=== PATIENT | female | born 1960 | race Two or more races ===

== ENCOUNTER 2024-07-01 08:29 | Emergency (ER) | payer OTHER ==
[~2024-07-01] VITALS: Ht 170.2 cm; Wt 76.7 kg
[2024-07-01] MEDS ORDERED: TOPROL XL50 M1 (08:38)
[2024-07-01 09:16] LABS: HEMATOCRIT 37.8 % (36.0-45.00); HEMOGLOBIN 13.2 g/dL (12.0-15.00); MEAN CELL VOLUME 91.5 fL (80.00-100.00); MEAN CORPUSCULAR HEMOGLOBIN 31.9 pg (27.00-32.0); MEAN CORPUSCULAR HGB CONC 34.9 g/dl (32.0-36.0); PLATELET COUNT 197 K/uL (150-450); RED BLOOD COUNT 4.13 M/uL (4.00-6.00); RED CELL DISTRIBUTION WIDTH 12.8 % (11.5-14.5)
[2024-07-01 09:46] LABS: PH,URINE 5.5 (5.0-8.0); URINE APPEARANCE Cloudy; URINE BILIRRUBIN Small (NEGATIVE); URINE BLOOD Large; URINE COLOR Dark Yellow; URINE GLUCOSE Negative (NEGATIVE); URINE KETONE Trace (NEGATIVE); URINE LEUKOCYTE Trace; URINE NITRATE Negative; URINE PROTEIN 30 (NEGATIVE)
[2024-07-01 09:50] LABS: URINE BACTERIA 60.4 uL (0.0-1933); URINE EPITHELIAL CELLS 7.2 uL (0.0-38.8); URINE RBC 260.4 uL (0.0-20.8); URINE WBC 4.9 uL (0.0-23.2)
[2024-07-01 09:52] LABS: BILIRUBIN TOTAL 0.76 mg/dL (0.3-1.2); BILIRUBIN,CONJUGATED 0.17 mg/dL (0.0-0.2); BILIRUBIN,UNCONJUGATED 0.59 mg/dL (0.0-0.6); CALCIUM 9.5 mg/dL (8.5-10.1); CREATININE SERUM 0.6 mg/dL (0.55-1.02); GFR 101.3; POTASSIUM 4.57 mEq/L (3.5-5.1)
[2024-07-01 10:00] LABS: URINE CAST 0.76 uL (0.0-1.40); URINE CRYSTALS MANY /HPF
[2024-07-01] MEDS ORDERED: RIVAROXABAN 15 MG TABLET PO STA (12:05)
== END 2024-07-01 12:51 | disposition home or self-care (01) ==
LOC: ER 08:31
PROVIDERS: General Practice
DX: I82.4Y9 Acute embolism and thrombosis of unspecified deep veins of unspecified proximal lower extremity (principal); I48.91 Unspecified atrial fibrillation; I49.8 Other specified cardiac arrhythmias

== ENCOUNTER 2024-07-04 07:18 | Inpatient (IN) | payer OTHER ==
[~2024-07-04] VITALS: Ht 170.2 cm; Wt 75.7 kg
[~2024-07-04 07:18] MED LIST: TOPROL XL50 M1
[2024-07-04] MEDS ORDERED: ELIQUIS5 MG PO (07:24)
--- NOTE | 2024-07-04 07:30 | NUR ---
SE RECIBE PTE FEMENINA ALERTA Y ORIENTADA X3 REFIERE DOLOR ABDOMINAL DESDE HACE VARIOS RODRIGUEZ. PTE INDICA FUE ATENDIDA EL PASADO MIERCOLES POR S/S SIMILARES Y FUE DIAGNOSTICADA CON DIVERTICULITIS. SE SARABJIT S/V Y SE UBICA.
--- NOTE | 2024-07-04 09:09 | NUR ---
PTE ALERTA Y ORIENTADA X3 ES EVALUADA POR LA DRA. COLVIN. SE ORIENTA SOBRE TRATAMIENTO,VERBALIZA ENTENDER. SE CANALIZA, SE SARABJIT MUESTARS DE LAB SABINA ORDEN MEDICA BAJO MEDIDAS ASEPTICAS. SE NOTIFICA CT PENDIENTE.
[2024-07-04 09:24] LABS: HEMATOCRIT 37.9 % (36.0-45.00); HEMOGLOBIN 13.2 g/dL (12.0-15.00); MEAN CELL VOLUME 91.8 fL (80.00-100.00); MEAN CORPUSCULAR HGB CONC 34.9 g/dl (32.0-36.0); PLATELET COUNT 228 K/uL (150-450); RED BLOOD COUNT 4.13 M/uL (4.00-6.00); RED CELL DISTRIBUTION WIDTH 12.4 % (11.5-14.5)
[2024-07-04 09:52] LABS: ALBUMIN 3.6 gm/dL (3.4-5.0); BILIRUBIN TOTAL 1.05 mg/dL (0.3-1.2); CALCIUM 9.5 mg/dL (8.5-10.1); CREATININE SERUM 0.68 mg/dL (0.55-1.02); GFR 87.67; GLOBULINA 4.1 G/DL (2.4-3.5); POTASSIUM 4.17 mEq/L (3.5-5.1); TOTAL PROTEIN 7.7 gm/dL (6.4-8.2)
[2024-07-04 09:55] LABS: D DIMER 1.19 MG/L; PARTIAL THROMBOPLASTIN TIME 33.5 SECONDS (22.0-34.0)
[2024-07-04 09:59] LABS: INR 1.19; PROTHROMBIN TIME 12.8 SECONDS (9.0-11.5)
[2024-07-04 12:40] LABS: URINE APPEARANCE CLEAR; URINE COLOR YELLOW
[2024-07-04 12:41] LABS: URINE BILIRRUBIN SMALL (NEGATIVE); URINE GLUCOSE NEGATIVE (NEGATIVE); URINE KETONE 40 (NEGATIVE)
[2024-07-04 12:42] LABS: PH,URINE 5.5; URINE BLOOD MODERATE; URINE PROTEIN NEGATIVE (NEGATIVE)
[2024-07-04 12:43] LABS: URINE LEUKOCYTE NEGATIVE; URINE NITRATE NEGATIVE; URINE UROBILINOGEN 0.2 E.U./dl
[2024-07-04 12:46] LABS: URINE BACTERIA FEW; URINE EPITHELIAL CELLS 0-4 /HPF; URINE WBC 0-2 /hpf
[2024-07-04 12:47] LABS: URINE MUCUS NEGATIVE
--- NOTE | 2024-07-04 15:25 | NUR ---
SE RECIBE PACIENTE DE TURNO ANTERIOR ALERTA Y ORIENTADO EN JANIS PRECIOUS ESFERAS, UBICADO EN HERSON A NIVEL MAS BAJO Y CON BARANDAS ELEVADAS. SE OBSERVA CON BUEN PATRON RESPIRATORIO Y PIEL TIBIA AL TACTO. CANALIZACION PATENTE,KIA DE EDEMA O ERITEMA. PACIENTE CONSULTADA CON Y .
[2024-07-04] MEDS ORDERED: DEXTROSE 5 % AND 0.9 % NACL 1,000 ML IV SCH (17:45)
[2024-07-04] MEDS ORDERED: PIPERACILLIN/TAZOBACTAM SODIUM 3.375 GM in 0.9 % SODIUM CHLORIDE 100 ML IV SCH (18:00)
[2024-07-04] MEDS ORDERED: ACETAMINOPHEN 500 MG GEL..CAP PO PRN (18:00)
[2024-07-04] MEDS ORDERED: ENALAPRILAT DIHYDRATE 1.25 MG/ML VIAL IV PRN (18:00)
[2024-07-04] MEDS ORDERED: ONDANSETRON HCL 4 MG in DEXTROSE 5 % IN WATER 50 ML IV PRN (18:00)
[2024-07-04] MEDS ORDERED: FAMOTIDINE/PF 20 MG in 0.9 % SODIUM CHLORIDE 8 ML IV PUSH SCH (21:00)
[2024-07-04 22:57] VITALS: BP 123/69; O2SAT 98
[2024-07-05] VITALS: BP 116/61; O2SAT 99
[2024-07-05] MEDS ORDERED: MEPERIDINE HCL/PF 25 MG/ML VIAL IM SCH (01:00)
[2024-07-05 08:17] VITALS: BP 107/67; O2SAT 100
[2024-07-05 08:19] VITALS: BP 141/62; O2SAT 98
[2024-07-05 08:35] LABS: HEMATOCRIT 35.8 % (36.0-45.00); HEMOGLOBIN 12.4 g/dL (12.0-15.00); MEAN CELL VOLUME 91.2 fL (80.00-100.00); MEAN CORPUSCULAR HEMOGLOBIN 31.5 pg (27.00-32.0); MEAN CORPUSCULAR HGB CONC 34.5 g/dl (32.0-36.0); PLATELET COUNT 218 K/uL (150-450); RED BLOOD COUNT 3.93 M/uL (4.00-6.00); RED CELL DISTRIBUTION WIDTH 12.2 % (11.5-14.5)
[2024-07-05 08:40] LABS: ALBUMIN 3.3 gm/dL (3.4-5.0); BILIRUBIN TOTAL 0.87 mg/dL (0.3-1.2); BILIRUBIN,CONJUGATED 0.25 mg/dL (0.0-0.2); BILIRUBIN,UNCONJUGATED 0.62 mg/dL (0.0-0.6); CALCIUM 8.4 mg/dL (8.5-10.1); CHOL HDL RATIO 2.4 (0-5.0); CREATININE SERUM 0.49 mg/dL (0.55-1.02); GFR 127.97; GLOBULINA 3.1 G/DL (2.4-3.5); POTASSIUM 3.96 mEq/L (3.5-5.1); TOTAL PROTEIN 6.4 gm/dL (6.4-8.2)
[2024-07-05 08:48] LABS: C-REACTIVE PROTEIN 9.07 MG/DL (0.00-0.29)
[2024-07-05] MEDS ORDERED: METOPROLOL SUCCINATE 50 MG TAB.SR.24H PO SCH (09:00)
[2024-07-05] MEDS ORDERED: APIXABAN 5 MG TABLET PO SCH (09:00)
[2024-07-05 09:01] LABS: INR 1.18; PARTIAL THROMBOPLASTIN TIME 33.6 SECONDS (22.0-34.0); PROTHROMBIN TIME 12.7 SECONDS (9.0-11.5)
[2024-07-05 09:11] LABS: ERYTHROCYTE SEDIMENTATION RATE 41 mm/hr
[2024-07-05 09:37] LABS: PH,URINE 5.5 (5.0-8.0); URINE APPEARANCE Turbid; URINE BILIRRUBIN Small (NEGATIVE); URINE BLOOD Large; URINE COLOR Dark Yellow; URINE GLUCOSE Negative (NEGATIVE); URINE LEUKOCYTE Small; URINE NITRATE Negative; URINE PROTEIN 30 (NEGATIVE)
[2024-07-05 09:40] LABS: URINE BACTERIA 539.2 uL (0.0-1933); URINE CAST 1.98 uL (0.0-1.40); URINE EPITHELIAL CELLS 20.8 uL (0.0-38.8); URINE RBC 636.1 uL (0.0-20.8)
[2024-07-05 09:58] LABS: URINE CRYSTALS MODERATE /HPF; URINE KETONE 80 (NEGATIVE)
[2024-07-05 10:02] LABS: ob NEGATIVE (NEGATIVE)
[2024-07-05 15:52] VITALS: BP 117/65; O2SAT 99
[2024-07-05] MEDS ORDERED: ENOXAPARIN SODIUM 80 MG/0.8 ML SYRINGE SUBCUTANEO SCH (17:00)
[2024-07-06] VITALS: BP 123/69; O2SAT 99
[2024-07-06 08:51] VITALS: BP 113/65; O2SAT 97
[2024-07-06 16:11] VITALS: BP 115/69; O2SAT 99
[2024-07-07 00:24] VITALS: BP 108/70; O2SAT 98
[2024-07-07 06:45] LABS: HEMATOCRIT 34.6 % (36.0-45.00); HEMOGLOBIN 12.1 g/dL (12.0-15.00); MEAN CELL VOLUME 90.6 fL (80.00-100.00); MEAN CORPUSCULAR HEMOGLOBIN 31.7 pg (27.00-32.0); PLATELET COUNT 249 K/uL (150-450); RED BLOOD COUNT 3.82 M/uL (4.00-6.00); RED CELL DISTRIBUTION WIDTH 12.1 % (11.5-14.5)
[2024-07-07 07:23] LABS: BILIRUBIN TOTAL 0.66 mg/dL (0.3-1.2); CALCIUM 8.7 mg/dL (8.5-10.1); CREATININE SERUM 0.54 mg/dL (0.55-1.02); GFR 114.39; POTASSIUM 4.03 mEq/L (3.5-5.1)
[2024-07-07 08:00] VITALS: BP 105/64; O2SAT 95
[2024-07-07] MEDS ORDERED: APIXABAN 5 MG TABLET PO SCH (09:00)
[2024-07-07 16:00] VITALS: BP 111/69; O2SAT 98
[2024-07-08 01:14] VITALS: BP 108/60; O2SAT 94
[2024-07-08] MEDS ORDERED: DIATRIZOATE MEGLUMINE, SODIUM 30 ML BOTTLE PO NR (08:15)
[2024-07-08 08:52] VITALS: BP 122/71; O2SAT 100
[2024-07-08 16:00] VITALS: BP 115/74; O2SAT 97
[2024-07-09 01:53] VITALS: BP 117/64; O2SAT 95
[2024-07-09 08:58] VITALS: BP 113/72; O2SAT 97
[2024-07-09 16:06] VITALS: BP 112/70; O2SAT 95
[2024-07-10 00:10] VITALS: BP 120/73; O2SAT 98
[2024-07-10] MEDS ORDERED: METOPROLOL TARTRATE 5MG/5ML AMPUL IV STA (04:34)
[2024-07-10 06:55] VITALS: O2SAT 95
[2024-07-10 08:29] VITALS: BP 118/80; O2SAT 98
[2024-07-10 09:04] VITALS: O2SAT 97
== END 2024-07-10 13:52 | disposition home or self-care (01) | DRG 392 ==
LOC: ER 07:20 → SEC-K 18:10 → SURG 18:10
PROVIDERS: General Practice; ADMIT Internal Medicine; ATTEND Internal Medicine
PROC: BW21YZZ Computerized Tomography (CT Scan) of Abdomen and Pelvis using Other Contrast (ICD-10-PCS; 2024-07-04)
PROC: 4A12X4Z Monitoring of Cardiac Electrical Activity, External Approach (ICD-10-PCS; principal; 2024-07-05)
PROC: BW21YZZ Computerized Tomography (CT Scan) of Abdomen and Pelvis using Other Contrast (ICD-10-PCS; 2024-07-08)
DX: K52.9 Noninfective gastroenteritis and colitis, unspecified (principal); K61.1 Rectal abscess; I10 Essential (primary) hypertension; I48.91 Unspecified atrial fibrillation

== ENCOUNTER 2024-08-14 08:59 | Outpatient (CLI) | payer OTHER ==
[~2024-08-14 08:59] MED LIST changes: +ELIQUIS5 MG PO
== END 2024-08-14 09:08 | disposition home or self-care (01) ==
LOC: SONOGRAMA 08:59
DX: M25.519 Pain in unspecified shoulder (principal)